=== PATIENT | male | born 1965 | race Caucasian/White ===

== ENCOUNTER 2021-01-25 00:17 | Inpatient (IN) | payer BC ==
[2021-01-25] MEDS ORDERED: SODIUM CHLORIDE 0.9% 2,000 ML IV STA (00:49)
[2021-01-25] MEDS ORDERED: ONDANSETRON 4 MG/2 ML VIAL IVP STA (00:49)
--- NOTE | 2021-01-25 00:55 | ED ---
Abdominal Pain HPI - General Chief Complaint: Abdominal Pain Stated Complaint: Abd Pain Time Seen by Provider: 01/25/21 00:27 Source: patient, RN notes reviewed Mode of arrival: ambulatory Limitations: no limitations - History of Present Illness Initial Comments: 55-year-old male presents emergency Department with chief complaint of severe upper abdominal, mid abdominal pain. Patient states his started around 8:00 this evening. Patient is a cement the pain. Patient does have a history of bowel resection secondary to diverticulitis. Patient states this was many years ago. Patient with nausea vomiting mild constipation. No known fever states he 's had chills, sweating episodes. No chest pain shortness breath headache dizziness. Dies any back or flank pain - Related Data Allergies Allergy/AdvReac Type Severity Reaction Status Date / Time No Known Allergies Allergy Verified 01/25/21 00:21 Review of Systems ROS Statement: Those systems with pertinent positive or pertinent negative responses have been documented in the HPI. ROS Other: All systems not noted in ROS Statement are negative. Past Medical History Past Medical History: Hypertension Additional Past Medical History / Comment(s): diverticulitis History of Any Multi-Drug Resistant Organisms: None Reported Past Surgical History: Bowel Resection Past Psychological History: Depression Smoking Status: Former smoker Past Alcohol Use History: None Reported Past Drug Use History: None Reported General Exam Limitations: no limitations General appearance: alert, in no apparent distress Head exam: Present: atraumatic, normocephalic, normal inspection Eye exam: Present: normal appearance, PERRL, EOMI. Absent: scleral icterus, conjunctival injection, periorbital swelling ENT exam: Present: normal exam, normal oropharynx, mucous membranes moist Neck exam: Present: normal inspection, full ROM. Absent: tenderness, meningismus, lymphadenopathy Respiratory exam: Present: normal lung sounds bilaterally. Absent: respiratory distress, wheezes, rales, rhonchi, stridor Cardiovascular Exam: Present: regular rate, normal rhythm, normal heart sounds. Absent: systolic murmur, diastolic murmur, rubs, gallop, clicks GI/Abdominal exam: Present: soft, tenderness, guarding (Voluntary), normal bowel sounds. Absent: distended, rebound, rigid Back exam: Absent: CVA tenderness (R), CVA tenderness (L) Neurological exam: Present: alert, oriented X3 Skin exam: Present: warm, dry, intact, normal color. Absent: rash Course Vital Signs 01/25/21 00:22 Temperature 98.0 F Pulse Rate 103 H Respiratory 16 Rate Blood Pressure 159/99 O2 Sat by Pulse 97 Oximetry Medical Decision Making - Medical Decision Making 55-year-old presented for abdominal pain CT shows evidence of partial small bowel obstruction. Patient does have a history of bowel resection. Patient would be admitted with consult to surgery. - Lab Data Result diagrams: 01/25/21 00:56 01/25/21 00:56 Lab Results 01/25/21 01/25/21 01/25/21 Range/Units 00:56 00:56 00:56 WBC 16.2 H (3.8-10.6) k/uL RBC 5.89 (4.30-5.90) m/uL Hgb 17.1 (13.0-17.5) gm/dL Hct 50.2 (39.0-53.0) % MCV 85.2 (80.0-100.0) fL MCH 29.1 (25.0-35.0) pg MCHC 34.2 (31.0-37.0) g/dL RDW 12.7 (11.5-15.5) % Plt Count 292 (150-450) k/uL MPV 7.9 Neutrophils % 86 % Lymphocytes % 10 % Monocytes % 3 % Eosinophils % 1 % Basophils % 1 % Neutrophils # 13.8 H (1.3-7.7) k/uL Lymphocytes # 1.6 (1.0-4.8) k/uL Monocytes # 0.4 (0-1.0) k/uL Eosinophils # 0.2 (0-0.7) k/uL Basophils # 0.1 (0-0.2) k/uL PT 10.2 (9.0-12.0) sec INR 0.9 (<1.2) APTT 20.9 L (22.0-30.0) sec Sodium 137 (137-145) mmol/L Potassium 4.8 (3.5-5.1) mmol/L Chloride 98 (98-107) mmol/L Carbon Dioxide 25 (22-30) mmol/L Anion Gap 14 mmol/L BUN 19 (9-20) mg/dL Creatinine 1.12 (0.66-1.25) mg/dL Est GFR (CKD-EPI)AfAm 84 (>60 ml/min/1.73 sqM) Est GFR (CKD-EPI)NonAf 73 (>60 ml/min/1.73 sqM) Glucose 178 H (74-99) mg/dL Plasma Lactic Acid [place] (0.7-2.0) mmol/L Calcium 10.7 H (8.4-10.2) mg/dL Total Bilirubin 0.7 (0.2-1.3) mg/dL AST 40 (17-59) U/L ALT 46 (4-49) U/L Alkaline Phosphatase 109 (38-126) U/L Total Protein 8.9 H (6.3-8.2) g/dL Albumin 5.1 H (3.5-5.0) g/dL Amylase 49 (30-110) U/L Lipase 55 (23-300) U/L 01/25/21 Range/Units 00:56 WBC (3.8-10.6) k/uL RBC (4.30-5.90) m/uL Hgb (13.0-17.5) gm/dL Hct (39.0-53.0) % MCV (80.0-100.0) fL MCH (25.0-35.0) pg MCHC (31.0-37.0) g/dL RDW (11.5-15.5) % Plt Count (150-450) k/uL MPV Neutrophils % % Lymphocytes % % Monocytes % % Eosinophils % % Basophils % % Neutrophils # (1.3-7.7) k/uL Lymphocytes # (1.0-4.8) k/uL Monocytes # (0-1.0) k/uL Eosinophils # (0-0.7) k/uL Basophils # (0-0.2) k/uL PT (9.0-12.0) sec INR (<1.2) APTT (22.0-30.0) sec Sodium (137-145) mmol/L Potassium (3.5-5.1) mmol/L Chloride (98-107) mmol/L Carbon Dioxide (22-30) mmol/L Anion Gap mmol/L BUN (9-20) mg/dL Creatinine (0.66-1.25) mg/dL Est GFR (CKD-EPI)AfAm (>60 ml/min/1.73 sqM) Est GFR (CKD-EPI)NonAf (>60 ml/min/1.73 sqM) Glucose (74-99) mg/dL Plasma Lactic Acid [place] 3.6 H* (0.7-2.0) mmol/L Calcium (8.4-10.2) mg/dL Total Bilirubin (0.2-1.3) mg/dL AST (17-59) U/L ALT (4-49) U/L Alkaline Phosphatase (38-126) U/L Total Protein (6.3-8.2) g/dL Albumin (3.5-5.0) g/dL Amylase (30-110) U/L Lipase (23-300) U/L Disposition Clinical Impression: Partial small bowel obstruction Disposition: ADMITTED IP TO THIS HOSP Condition: Fair Referrals: Nonstaff,Physician [REFERRING] - 1-2 days
[2021-01-25 01:05] LABS: Basophils # (A) 0.1 k/uL (0-0.2); Basophils % (A) 1 %; Eosinophils # (A) 0.2 k/uL (0-0.7); Eosinophils % (A) 1 %; HCT 50.2 % (39.0-53.0); HGB 17.1 gm/dL (13.0-17.5); Lymphocytes # (A) 1.6 k/uL (1.0-4.8); Lymphocytes % (A) 10 %; MCH 29.1 pg (25.0-35.0); MCHC 34.2 g/dL (31.0-37.0); MCV 85.2 fL (80.0-100.0); Mean Platelet Volume 7.9; Monocytes # (A) 0.4 k/uL (0-1.0); Monocytes % (A) 3 %; Neutrophils # (A) 13.8 k/uL (1.3-7.7); Neutrophils % (A) 86 %; Platelet Count 292 k/uL (150-450); RBC 5.89 m/uL (4.30-5.90); RDW 12.7 % (11.5-15.5); WBC 16.2 k/uL (3.8-10.6)
[2021-01-25] MEDS: HYDROmorphone 0.5 MG/0.5 ML SYRINGE IVP STA (01:05)
[2021-01-25 01:27] LABS: INR 0.9 (<1.2); Prothrombin Time 10.2 sec (9.0-12.0)
[2021-01-25 01:32] LABS: Partial Thromboplastin Time 20.9 sec (22.0-30.0)
[2021-01-25 01:46] LABS: Albumin 5.1 g/dL (3.5-5.0); Calcium 10.7 mg/dL (8.4-10.2); Potassium 4.8 mmol/L (3.5-5.1); Total Bilirubin 0.7 mg/dL (0.2-1.3); Total Protein 8.9 g/dL (6.3-8.2)
--- NOTE | 2021-01-25 02:00 | CT ---
EXAM: CT Abdomen and Pelvis With Intravenous Contrast CLINICAL HISTORY: ITS.REASON CT Reason: abdominal pain TECHNIQUE: Axial computed tomography images of the abdomen and pelvis with intravenous contrast. CTDI is 22.67 mGy and DLP is 1066.3 mGy-cm. This CT exam was performed using one or more of the following dose reduction techniques: automated exposure control, adjustment of the mA and/or kV according to patient size, and/or use of iterative reconstruction technique. COMPARISON: No relevant prior studies available. FINDINGS: Lung bases: Unremarkable. No mass. No consolidation. ABDOMEN: Liver: Hepatic steatosis. Gallbladder and bile ducts: Unremarkable. No calcified stones. No ductal dilation. Pancreas: Unremarkable. No mass. No ductal dilation. Spleen: Unremarkable. No splenomegaly. Adrenals: Unremarkable. No mass. Kidneys and ureters: Unremarkable. No solid mass. No hydronephrosis. Stomach and bowel: Asymmetric fluid distention of multiple loops of small bowel in the left abdomen and pelvis, measuring up to 3.6 cm in diameter there is a suggestion of a transition point noted anteriorly in the midline abdomen (series 202; images 10-13). Asymmetric decompression of the mid to distal small bowel loops is noted in the right abdomen and pelvis. Mild stool throughout the colon. Postsurgical changes involving the sigmoid region. No mucosal thickening. PELVIS: Appendix: No findings to suggest acute appendicitis. Bladder: Unremarkable. No mass. Reproductive: Unremarkable as visualized. ABDOMEN and PELVIS: Intraperitoneal space: Unremarkable. No free air. No significant fluid collection. Bones/joints: No acute fracture. No dislocation. Soft tissues: Unremarkable. Vasculature: Unremarkable. No abdominal aortic aneurysm. Lymph nodes: Unremarkable. No enlarged lymph nodes. IMPRESSION: Asymmetric fluid distention of multiple loops of small bowel in the left abdomen and pelvis, measuring up to 3.6 cm in diameter there is a suggestion of a transition point noted anteriorly in the midline abdomen. Asymmetric decompression of the mid to distal small bowel loops is noted in the right abdomen and pelvis. Findings are highly suspicious for at least a partial mid small bowel obstruction. No pneumatosis or pneumoperitoneum.
[2021-01-25] MEDS ORDERED: HYDROmorphone 0.5 MG/0.5 ML SYRINGE IVP PRN (02:37)
[2021-01-25] MEDS ORDERED: NALOXONE 0.4 MG/ML 1 ML VIAL IV PRN (02:37)
[2021-01-25] MEDS: SODIUM CHLORIDE 0.9% 1,000 ML IV SCH ×2 (03:00→15:05)
[2021-01-25 03:18] LABS: Appearance,Urine Clear (Clear); Bilirubin,Urine Negative (Negative); Blood,Urine Negative (Negative); Color,Urine Light Yellow; Glucose,Urine (UA) Negative (Negative); Ketones,Urine 1+ (Negative); Leukocyte Esterase,Urine Negative (Negative); Nitrite,Urine Negative (Negative); PH, Urine 8.5 (5.0-8.0); Protein,Urine Trace (Negative); Urobilinogen,Urine <2.0 mg/dL (<2.0)
[2021-01-25] MEDS: HYDROmorphone 1 MG/ML 1 ML SYRINGE IVP PRN ×5 (04:38→17:10)
[2021-01-25] MEDS: PANTOPRAZOLE 40 MG/10 ML VIAL IV SCH (07:46)
[2021-01-25] MEDS: ONDANSETRON 4 MG/2 ML VIAL IVP PRN ×2 (07:54→16:08)
--- NOTE | 2021-01-25 11:29 | P.GSCN ---
History of Present Illness Consult date: 01/25/21 Reason for Consult: Small obstruction or bowel obstruction History of present illness: Is a 55-year-old male who was minimal possible colitis and nausea vomiting abdominal pain. Patient CAT scan performed which showed evidence of small bowel obstruction with transition point. Patient's previous history of exploratory laparotomy and colon resection for diverticulitis. He has an incisional hernia. Past Medical History Past Medical History: Hypertension Additional Past Medical History / Comment(s): diverticulitis History of Any Multi-Drug Resistant Organisms: None Reported Past Surgical History: Bowel Resection Past Anesthesia/Blood Transfusion Reactions: No Reported Reaction Past Psychological History: Depression Smoking Status: Former smoker Past Alcohol Use History: None Reported Additional Past Alcohol Use History / Comment(s): currently going AA meeting for 3 weeks Past Drug Use History: None Reported Medications and Allergies Home Medications Medication Instructions Recorded Confirmed Type Aspirin EC [Ecotrin] 325 mg PO DAILY PRN 01/25/21 01/25/21 History Doxylamine Succinate [Unisom] 25 mg PO HS PRN 01/25/21 01/25/21 History Lisinopril [Prinivil] 10 mg PO DAILY 01/25/21 01/25/21 History Magnesium Hydroxide [Milk of 400 mg PO DAILY PRN 01/25/21 01/25/21 History Magnesia] Melatonin 3 mg PO HS PRN 01/25/21 01/25/21 History Multivitamins, Thera [Multivitamin 1 tab PO DAILY 01/25/21 01/25/21 History (formulary)] Omeprazole 20 mg PO DAILY 01/25/21 01/25/21 History Venlafaxine HCl [Effexor XR] 75 mg PO BID 01/25/21 01/25/21 History amLODIPine [Norvasc] 2.5 mg PO DAILY 01/25/21 01/25/21 History Allergies Allergy/AdvReac Type Severity Reaction Status Date / Time No Known Allergies Allergy Verified 01/25/21 09:08 Surgical - Exam Vital Signs Temp Pulse Resp BP Pulse Ox 98.0 F 103 H 16 159/99 97 01/25/21 00:22 01/25/21 00:22 01/25/21 00:22 01/25/21 00:22 01/25/21 00:22 - General well developed, well nourished, moderate distress - Eyes PERRL - ENT normal pinna - Neck no masses - Respiratory normal expansion - Cardiovascular Rhythm: regular - Abdomen Incisional hernia located midline Abdomen: soft, tender, distended Results - Labs 01/25/21 00:56 01/25/21 00:56 Abnormal Lab Results - Last 24 Hours (Table) 01/25/21 01/25/21 01/25/21 Range/Units 00:56 00:56 00:56 WBC 16.2 H (3.8-10.6) k/uL Neutrophils # 13.8 H (1.3-7.7) k/uL APTT 20.9 L (22.0-30.0) sec Glucose 178 H (74-99) mg/dL Plasma Lactic Acid [place] (0.7-2.0) mmol/L Calcium 10.7 H (8.4-10.2) mg/dL Total Protein 8.9 H (6.3-8.2) g/dL Albumin 5.1 H (3.5-5.0) g/dL Urine pH (5.0-8.0) Ur Specific [place] (1.001-1.035) Urine Protein (Negative) Urine Ketones (Negative) 01/25/21 01/25/21 01/25/21 Range/Units 00:56 03:04 04:15 WBC (3.8-10.6) k/uL Neutrophils # (1.3-7.7) k/uL APTT (22.0-30.0) sec Glucose (74-99) mg/dL Plasma Lactic Acid [place] 3.6 H* 2.2 H* (0.7-2.0) mmol/L Calcium (8.4-10.2) mg/dL Total Protein (6.3-8.2) g/dL Albumin (3.5-5.0) g/dL Urine pH 8.5 H (5.0-8.0) Ur Specific [place] 1.040 H (1.001-1.035) Urine Protein Trace H (Negative) Urine Ketones 1+ H (Negative) Diabetes panel 01/25/21 Range/Units 00:56 Sodium 137 (137-145) mmol/L Potassium 4.8 (3.5-5.1) mmol/L Chloride 98 (98-107) mmol/L Carbon Dioxide 25 (22-30) mmol/L BUN 19 (9-20) mg/dL Creatinine 1.12 (0.66-1.25) mg/dL Glucose 178 H (74-99) mg/dL Calcium 10.7 H (8.4-10.2) mg/dL AST 40 (17-59) U/L ALT 46 (4-49) U/L Alkaline Phosphatase 109 (38-126) U/L Total Protein 8.9 H (6.3-8.2) g/dL Albumin 5.1 H (3.5-5.0) g/dL Calcium panel 01/25/21 Range/Units 00:56 Calcium 10.7 H (8.4-10.2) mg/dL Albumin 5.1 H (3.5-5.0) g/dL Pituitary panel 01/25/21 Range/Units 00:56 Sodium 137 (137-145) mmol/L Potassium 4.8 (3.5-5.1) mmol/L Chloride 98 (98-107) mmol/L Carbon Dioxide 25 (22-30) mmol/L BUN 19 (9-20) mg/dL Creatinine 1.12 (0.66-1.25) mg/dL Glucose 178 H (74-99) mg/dL Calcium 10.7 H (8.4-10.2) mg/dL Adrenal panel 01/25/21 Range/Units 00:56 Sodium 137 (137-145) mmol/L Potassium 4.8 (3.5-5.1) mmol/L Chloride 98 (98-107) mmol/L Carbon Dioxide 25 (22-30) mmol/L BUN 19 (9-20) mg/dL Creatinine 1.12 (0.66-1.25) mg/dL Glucose 178 H (74-99) mg/dL Calcium 10.7 H (8.4-10.2) mg/dL Total Bilirubin 0.7 (0.2-1.3) mg/dL AST 40 (17-59) U/L ALT 46 (4-49) U/L Alkaline Phosphatase 109 (38-126) U/L Total Protein 8.9 H (6.3-8.2) g/dL Albumin 5.1 H (3.5-5.0) g/dL Assessment and Plan Assessment: Small obstruction related to incisional hernia and adhesions. Patient undergo operative repair in the a.m.
[2021-01-25] MEDS ORDERED: ONDANSETRON 4 MG/2 ML VIAL IVP PRN (16:44)
--- NOTE | 2021-01-25 17:43 | P.CONS ---
History of Present Illness - Reason for Consult Consult date: 01/25/21 Medical management - Chief Complaint Abdominal pain - History of Present Illness 55-year-old male presents emergency Department with chief complaint of severe upper abdominal, mid abdominal pain. Patient states his started around 8:00 this evening. Patient is a cement the pain. Patient does have a history of bowel resection secondary to diverticulitis. Patient states this was many years ago. Patient with nausea vomiting mild constipation. No known fever states he's had chills, sweating episodes. No chest pain shortness breath headache dizziness. Dies any back or flank pain abdominal pain CT shows evidence of partial small bowel obstruction. Patient does have a history of bowel resection. Patient would be admitted with consult to surgery. Patient is evaluated by surgery and is planned to undergo incisional hernia repair in the morning with adhesiolysis Review of Systems REVIEW OF SYSTEMS: CONSTITUTIONAL: No fever, no malaise, no fatigue. HEENT: No recent visual problems or hearing problems. Denied any sore throat. CARDIOVASCULAR: No chest pain, orthopnea, PND, no palpitations, no syncope. PULMONARY: No shortness of breath, no cough, no hemoptysis. GASTROINTESTINAL: No diarrhea, no nausea, no vomiting, no abdominal pain. NEUROLOGICAL: No headaches, no weakness, no numbness. HEMATOLOGICAL: Denies any bleeding or petechiae. GENITOURINARY: Denies any burning micturition, frequency, or urgency. MUSCULOSKELETAL/RHEUMATOLOGICAL: Denies any joint pain, swelling, or any muscle pain. ENDOCRINE: Denies any polyuria or polydipsia. The rest of the 14-point review of systems is negative. Past Medical History Past Medical History: Hypertension Additional Past Medical History / Comment(s): diverticulitis History of Any Multi-Drug Resistant Organisms: None Reported Past Surgical History: Bowel Resection Past Anesthesia/Blood Transfusion Reactions: No Reported Reaction Past Psychological History: Depression Smoking Status: Former smoker Past Alcohol Use History: None Reported Additional Past Alcohol Use History / Comment(s): currently going AA meeting for 3 weeks Past Drug Use History: None Reported Medications and Allergies Home Medications Medication Instructions Recorded Confirmed Type Aspirin EC [Ecotrin] 325 mg PO DAILY PRN 01/25/21 01/25/21 History Doxylamine Succinate [Unisom] 25 mg PO HS PRN 01/25/21 01/25/21 History Lisinopril [Prinivil] 10 mg PO DAILY 01/25/21 01/25/21 History Magnesium Hydroxide [Milk of 400 mg PO DAILY PRN 01/25/21 01/25/21 History Magnesia] Melatonin 3 mg PO HS PRN 01/25/21 01/25/21 History Multivitamins, Thera [Multivitamin 1 tab PO DAILY 01/25/21 01/25/21 History (formulary)] Omeprazole 20 mg PO DAILY 01/25/21 01/25/21 History Venlafaxine HCl [Effexor XR] 75 mg PO BID 01/25/21 01/25/21 History amLODIPine [Norvasc] 2.5 mg PO DAILY 01/25/21 01/25/21 History Allergies Allergy/AdvReac Type Severity Reaction Status Date / Time No Known Allergies Allergy Verified 01/25/21 09:08 Physical Exam Vitals: Vital Signs Temp Pulse Pulse Resp BP BP Pulse Ox 01/25/21 08:31 97.8 F 86 17 147/92 90 L 01/25/21 05:14 97.9 F 92 15 155/88 98 01/25/21 04:43 91 18 163/103 98 01/25/21 02:50 97.8 F 92 18 180/108 98 01/25/21 00:22 98.0 F 103 H 16 159/99 97 Intake and Output 01/24/21 01/25/21 01/25/21 22:59 06:59 14:59 Intake Total 75 Balance 75 Intake: Intake, IV Titration 75 Amount Sodium Chloride 0.9% 1, 75 000 ml @ 75 mls/hr IV . [id number] [facility] Rx#:[id number] Other: Weight 86.319 kg - Constitutional General appearance: Present: average body habitus, cooperative, no acute distress - EENT Eyes: Present: anicteric sclerae, EOMI, PERRLA, normal appearance ENT: Present: hearing grossly normal, normal oropharynx Ears: bilateral: normal - Neck Neck: Present: normal ROM. Absent: lymphadenopathy, rigidity, thyromegaly Carotids: negative: bruit present Thyroid: bilateral: normal size, negative: enlarged, nodule - Respiratory Respiratory: bilateral: CTA, negative: rales, rhonchi, wheezing - Cardiovascular Rhythm: regular Heart sounds: normal: S1, S2 Abnormal Heart Sounds: Absent: systolic murmur, diastolic murmur - Gastrointestinal General gastrointestinal: Present: normal bowel sounds, soft. Absent: distended, organomegaly, tenderness - Genitourinary Genitourinary Comment(s): deferred - Integumentary Integumentary: Present: normal turgor. Absent: jaundiced, rash, ulcer - Neurologic Neurologic: Present: CNII-XII intact. Absent: focal deficits - Musculoskeletal Musculoskeletal: Present: gait normal, strength equal bilaterally - Psychiatric Psychiatric: Present: A&O x's 3, appropriate affect, intact judgment & insight Results CBC & Chem 7: 01/25/21 00:56 01/25/21 00:56 Labs: Abnormal Lab Results - Last 24 Hours (Table) 01/25/21 01/25/21 01/25/21 Range/Units 00:56 00:56 00:56 WBC 16.2 H (3.8-10.6) k/uL Neutrophils # 13.8 H (1.3-7.7) k/uL APTT 20.9 L (22.0-30.0) sec Glucose 178 H (74-99) mg/dL Plasma Lactic Acid [place] (0.7-2.0) mmol/L Calcium 10.7 H (8.4-10.2) mg/dL Total Protein 8.9 H (6.3-8.2) g/dL Albumin 5.1 H (3.5-5.0) g/dL Urine pH (5.0-8.0) Ur Specific [place] (1.001-1.035) Urine Protein (Negative) Urine Ketones (Negative) 01/25/21 01/25/21 01/25/21 Range/Units 00:56 03:04 04:15 WBC (3.8-10.6) k/uL Neutrophils # (1.3-7.7) k/uL APTT (22.0-30.0) sec Glucose (74-99) mg/dL Plasma Lactic Acid [place] 3.6 H* 2.2 H* (0.7-2.0) mmol/L Calcium (8.4-10.2) mg/dL Total Protein (6.3-8.2) g/dL Albumin (3.5-5.0) g/dL Urine pH 8.5 H (5.0-8.0) Ur Specific [place] 1.040 H (1.001-1.035) Urine Protein Trace H (Negative) Urine Ketones 1+ H (Negative) Assessment and Plan Assessment: 1. Small bowel obstruction related to incisional hernia and adhesions - Your management; patient is scheduled for or for incisional hernia repair and adhesiolysis in am 2. Leukocytosis; possibly the active; monitor CBC 3. Hypercalcemia; possibly secondary to dehydration; we will start slow IV fluid hydration and monitor electrolytes closely 4. Hypertension; we will resume home dose of lisinopril 10 mg daily and amlodipine 2.5 mg daily 5. Depression/anxiety; Effexor 75 mg daily DVT prophylaxis; SCDs CODE STATUS; full code
[2021-01-25] MEDS: VENLAFAXINE HCL ER 75 MG CAP PO SCH (21:02)
[2021-01-26] MEDS: SODIUM CHLORIDE 0.9% 1,000 ML IV SCH ×2 (06:11→15:20)
[2021-01-26] MEDS: PANTOPRAZOLE 40 MG/10 ML VIAL IV SCH (07:38)
[2021-01-26] MEDS: VENLAFAXINE HCL ER 75 MG CAP PO SCH ×2 (08:14→20:54)
[2021-01-26] MEDS ORDERED: IV FLUID CONTINUATION 800 ML IV ONE (10:39)
[2021-01-26] MEDS ORDERED: MIDAZOLAM 2 MG/2 ML VIAL IV ONE (10:44)
[2021-01-26] MEDS ORDERED: fentaNYL (PF) 50 MCG/ML 2 ML AMP IV ONE (10:44)
[2021-01-26] MEDS ORDERED: HEPARIN SODIUM,PORCINE 5,000 UNIT/ML 1 ML VIAL SQ ONE (11:00)
[2021-01-26] MEDS ORDERED: DEXAMETHASONE SOD PHOSPHATE 4 MG/ML 1 ML VIAL IV ONE (11:00)
[2021-01-26] MEDS ORDERED: ROCURONIUM 10 MG/ML (5 ML VIAL) IV ONE (11:01)
[2021-01-26] MEDS ORDERED: NEOSTIGMINE 1 MG/ML 10 ML VIAL ONE (11:01)
[2021-01-26] MEDS ORDERED: fentaNYL (PF) 50 MCG/ML 2 ML AMP ONE (11:01)
[2021-01-26] MEDS ORDERED: SUCCINYLCHOLINE CHLORIDE 100 MG/5 ML SYR IV ONE (11:01)
[2021-01-26] MEDS ORDERED: MIDAZOLAM 2 MG/2 ML VIAL ONE (11:01)
[2021-01-26] MEDS ORDERED: LIDOCAINE 1% INJ 10MG/ML (20 ML MDV) ONE (11:01)
[2021-01-26] MEDS ORDERED: GLYCOPYRROLATE 0.2 MG/ML 2 ML VIAL ONE (11:01)
[2021-01-26] MEDS ORDERED: ROPIVACAINE 5 MG/ML 30 ML VIAL ONE (11:01)
[2021-01-26] MEDS ORDERED: PROPOFOL 10 MG/ML 20 ML VIAL IV ONE (11:01)
[2021-01-26] MEDS ORDERED: KETOROLAC 15 MG/ML 1 ML VIAL ONE (11:01)
--- NOTE | 2021-01-26 11:05 | P.ANPRN ---
Procedure Note - Anesthesia - Nerve Block Performed Bilateral Rectus Abdominis Single Time Out Performed: Yes (1043) Date of Procedure: 01/26/21 Procedure Start Time: 10:44 Procedure Stop Time: 10:51 Location of Patient: Phase I Indication: Acute Post-Operative Pain, Requested by Surgeon Specifically requested for management of pain by DrHoraico: Wayne Winslow Sedation Type: Sedate with meaningful contact maintained Preparation: Sterile Prep Position: Supine Catheter: None Needle Types: [place] Needle Gauge: 21 Ultrasound used to visualize needle placement: Yes Ultrasound used to observe medication spread: Yes Injectate: 0.5% Ropivacaine (see comment for volume) (20cc each side) Blood Aspirated: No Pain Paresthesia on Injection Noted: No Resistance on Injection: Normal Image Stored and Saved: Yes Events: Uneventful and Well Tolerated
[2021-01-26] MEDS ORDERED: SODIUM CHLORIDE 0.9% 100 ML with ceFAZolin 2,000 MG IV ONE ×2 (11:23)
[2021-01-26] MEDS ORDERED: LACTATED RINGERS 1,000 ML IV ONE ×2 (11:31→12:56)
[2021-01-26 11:45] LABS: Basophils # (A) 0.05 X 10*3/uL (0.00-0.10); Basophils % (A) 0.4 %; Eosinophils # (A) 0.41 X 10*3/uL (0.04-0.35); Eosinophils % (A) 3.4 %; HCT 40.2 % (39.6-50.0); HGB 12.9 g/dL (13.0-17.0); Lymphocytes # (A) 3.83 X 10*3/uL (0.90-5.00); Lymphocytes % (A) 31.3 %; MCHC 32.1 g/dL (32.0-37.0); MCV 90.3 fL (80.0-97.0); Monocytes # (A) 1.02 X 10*3/uL (0.20-1.00); Monocytes % (A) 8.3 %; Neutrophils # (A) 6.88 X 10*3/uL (1.80-7.70); Neutrophils % (A) 56.3 %; Platelet Count 248 X 10*3/uL (140-440); RBC 4.45 X 10*6/uL (4.40-5.60); RDW 12.5 % (11.5-14.5); WBC 12.23 X 10*3/uL (4.50-10.00)
[2021-01-26 12:13] LABS: African American GFR (CKD) 85.9 (60.0-200.0); Albumin 3.9 g/dL (3.80-4.90); Albumin/Globulin Ratio 1.7 (1.60-3.17); Anion Gap 6.9 mmol/L (4.00-12.00); BUN/Creat Ratio 17.27 Ratio (12.00-20.00); Calcium 8.5 mg/dL (8.7-10.3); Carbon Dioxide 27.1 mmol/L (21.6-31.8); Globulin 2.3 g/dL (1.6-3.3); Non-African American GFR(CKD) 74.1 (60.0-200.0); Potassium 4.5 mmol/L (3.5-5.5); Total Bilirubin 0.5 mg/dL (0.2-1.2); Total Protein 6.2 g/dL (6.2-8.2)
[2021-01-26] MEDS ORDERED: NALOXONE 0.4 MG/ML 1 ML VIAL IV PRN (12:56)
[2021-01-26] MEDS ORDERED: HYDROcodone/APAP 5-325MG 1 EACH TAB PO PRN (12:56)
[2021-01-26] MEDS ORDERED: HYDROmorphone 1 MG/ML 1 ML SYRINGE IVP PRN (13:01)
--- NOTE | 2021-01-26 13:05 | P.OP ---
Date of Procedure: 01/26/21 Preoperative Diagnosis: Small bowel obstruction Incisional hernia Postoperative Diagnosis: Adhesions extensive Incisional hernia Small bowel obstruction Procedure(s) Performed: exploratory laparotomy Lysis of adhesions Small bowel resection Repair of incisional hernia Anesthesia: GENO Surgeon: Wayne Winslow Estimated Blood Loss (ml): 100 Pathology: other (Small bowel) Condition: stable Disposition: PACU Description of Procedure: The patient's placed on the operative table in the supine position. He received general anesthesia. His abdomen was prepped and draped usual sterile fashion. The patient appears midline scar. The skin was incised. There were extensive adhesions within the peritoneal cavity. There was an incisional hernia noted. Approximate 40 minutes of operative time used to lyse the extensive adhesions. There appeared to be evidence of a internal hernia. The adhesions were lysed. There was a matted piece of bowel. His perform a small bowel resection. The small bowel was transected proximally distally with a GI stapler. And using the Enseal device the mesentery the bowel was divided. Using a [place] and TA staplers the [id number] functional end-to-end staple anastomosis created. Using 3-0 GI silk suture the mesentery was reapproximated. And a 3-0 GI silk was used as a crotch stitch. The abdomen was irrigated there is no bleeding seen. At this point the fascia was closed. Fascia closed with 0 PDS suture. The incisional hernias repaired during fascia closed. Skin was closed [place]. Patient top she will was sent to recovery in stable condition.
[2021-01-26] MEDS: HYDROmorphone 0.5 MG/0.5 ML SYRINGE IVP STA (13:20)
--- NOTE | 2021-01-26 17:04 | P.PN ---
Subjective Progress Note Date: 01/26/21 Principal diagnosis: Small bowel obstruction related to incisional hernia and adhesions Leukocytosis Hypercalcemia/dehydration 55-year-old male presents emergency Department with chief complaint of severe upper abdominal, mid abdominal pain. Patient states his started around 8:00 this evening. Patient is a cement the pain. Patient does have a history of bowel resection secondary to diverticulitis. Patient states this was many years ago. Patient with nausea vomiting mild constipation. No known fever states he's had chills, sweating episodes. No chest pain shortness breath headache dizziness. Dies any back or flank pain abdominal pain CT shows evidence of partial small bowel obstruction. Patient does have a history of bowel resection. Patient would be admitted with consult to surgery. Patient is evaluated by surgery and is planned to undergo incisional hernia repair in the morning with adhesiolysis 01/26/2021 Patient is seen and evaluated post exploratory laparotomy; Lysis of adhesions; Small bowel resection; Repair of incisional hernia-- POD #0 Vital signs are reviewed and patient remains afebrile, blood pressure 151/85, pulse 90 and O2 saturation of 94% on 2 L Labs reveal an improved white blood count of 12.2 from 16.2 yesterday; chemical profile remains stable; blood glucoses ranging between 94-178 Objective - Vital Signs Vital signs: Vital Signs Temp 98.2 F 01/26/21 07:33 Pulse 93 01/26/21 10:40 Resp 16 01/26/21 10:40 BP 136/77 01/26/21 10:40 Pulse Ox 96 01/26/21 10:40 Intake & Output 01/25/21 01/26/21 01/26/21 18:59 06:59 18:59 Intake Total 900 700 Balance 900 700 Weight 86.319 kg Intake: IV 700 Intake, IV Titration 900 Amount Sodium Chloride 0.9% 1, 900 000 ml @ 75 mls/hr IV . [id number] [facility] Rx#:[id number] Other: # Voids 3 1 - Exam - Constitutional General appearance: Present: average body habitus, cooperative, no acute distress - EENT Eyes: Present: anicteric sclerae, EOMI, PERRLA, normal appearance ENT: Present: hearing grossly normal, normal oropharynx Ears: bilateral: normal - Neck Neck: Present: normal ROM. Absent: lymphadenopathy, rigidity, thyromegaly Carotids: negative: bruit present Thyroid: bilateral: normal size, negative: enlarged, nodule - Respiratory Respiratory: bilateral: CTA, negative: rales, rhonchi, wheezing - Cardiovascular Rhythm: regular Heart sounds: normal: S1, S2 Abnormal Heart Sounds: Absent: systolic murmur, diastolic murmur - Gastrointestinal General gastrointestinal: Present: normal bowel sounds, soft. Absent: distended, organomegaly, tenderness - Genitourinary Genitourinary Comment(s): deferred - Integumentary Integumentary: Present: normal turgor. Absent: jaundiced, rash, ulcer - Neurologic Neurologic: Present: CNII-XII intact. Absent: focal deficits - Musculoskeletal Musculoskeletal: Present: gait normal, strength equal bilaterally - Psychiatric Psychiatric: Present: A&O x's 3, appropriate affect, intact judgment & insight - Labs CBC & Chem 7: 01/26/21 06:49 01/26/21 06:49 Labs: Abnormal Lab Results - Last 24 Hours (Table) 01/26/21 01/26/21 Range/Units 06:49 06:49 WBC 12.23 H (4.50-10.00) X 10*3/uL Hgb 12.9 L (13.0-17.0) g/dL Monocytes # 1.02 H (0.20-1.00) X 10*3/uL Eosinophils # 0.41 H (0.04-0.35) X 10*3/uL Calcium 8.5 L (8.7-10.3) mg/dL Assessment and Plan Assessment: 1. Small bowel obstruction related to incisional hernia and adhesions - Your management; patient is scheduled for or for incisional hernia repair and adhesiolysis in am 2. Leukocytosis; possibly the active; monitor CBC 3. Hypercalcemia; possibly secondary to dehydration; we will start slow IV fluid hydration and monitor electrolytes closely 4. Hypertension; we will resume home dose of lisinopril 10 mg daily and am lodipine 2.5 mg daily 5. Depression/anxiety; Effexor 75 mg daily DVT prophylaxis; SCDs CODE STATUS; full code
[2021-01-26] MEDS: KETOROLAC 15 MG/ML 1 ML VIAL IVP SCH (18:09)
[2021-01-26] MEDS: DOCUSATE 100 MG CAP PO SCH (20:54)
[2021-01-27] MEDS: KETOROLAC 15 MG/ML 1 ML VIAL IVP SCH ×4 (00:10→17:05)
[2021-01-27] MEDS: ENOXAPARIN 40 MG/0.4 ML SYRINGE SQ SCH (07:35)
[2021-01-27] MEDS: PANTOPRAZOLE 40 MG/10 ML VIAL IV SCH (07:35)
[2021-01-27] MEDS: VENLAFAXINE HCL ER 75 MG CAP PO SCH ×2 (07:36→20:12)
[2021-01-27] MEDS: DOCUSATE 100 MG CAP PO SCH ×2 (07:36→20:12)
[2021-01-27] MEDS: SODIUM CHLORIDE 0.9% 1,000 ML IV SCH (07:37)
[2021-01-27 08:48] LABS: Basophils # (A) 0.1 k/uL (0-0.2); Basophils % (A) 0 %; Eosinophils % (A) 0 %; HCT 42.3 % (39.0-53.0); HGB 14.2 gm/dL (13.0-17.5); Lymphocytes # (A) 2.3 k/uL (1.0-4.8); Lymphocytes % (A) 17 %; MCH 29.6 pg (25.0-35.0); MCHC 33.6 g/dL (31.0-37.0); MCV 88.2 fL (80.0-100.0); Mean Platelet Volume 7.7; Monocytes % (A) 8 %; Neutrophils # (A) 9.6 k/uL (1.3-7.7); Neutrophils % (A) 73 %; Platelet Count 223 k/uL (150-450); RDW 12.4 % (11.5-15.5); WBC 13.2 k/uL (3.8-10.6)
[2021-01-27 08:54] LABS: African American GFR (CKD) >90 (>60 ml/min/1.73 sqM); Anion Gap 11 mmol/L; Blood Urea Nitrogen 18 mg/dL (9-20); Calcium 8.7 mg/dL (8.4-10.2); Carbon Dioxide 25 mmol/L (22-30); Chloride 100 mmol/L (98-107); Glucose 123 mg/dL (74-99); Non-African American GFR(CKD) 81 (>60 ml/min/1.73 sqM); Sodium 136 mmol/L (137-145)
[2021-01-27] MEDS: HYDROmorphone 1 MG/ML 1 ML SYRINGE IVP PRN ×2 (11:06→21:55)
--- NOTE | 2021-01-27 13:17 | P.PN ---
Subjective Progress Note Date: 01/27/21 CHIEF COMPLAINT: Abdominal pain HISTORY OF PRESENT ILLNESS: Patient is postop day #1 status post exploratory laparotomy, lysis of adhesions, small bowel resection and repair of incisional hernia for small bowel obstruction with extensive adhesions and an incisional hernia. Patient does report crampy abdominal pain. No bowel activity yet. He is nothing by mouth. Afebrile. WBC 13.2 PHYSICAL EXAM: VITAL SIGNS: Reviewed. GENERAL: Well-developed in no acute distress. HEENT: No sclera icterus. Extraocular movements grossly intact. Moist buccal mucosa. Head is atraumatic, normocephalic. ABDOMEN: Soft. Nondistended. Incision sites clean dry and intact NEUROLOGIC: Alert and oriented. Cranial nerves II through XII grossly intact. ASSESSMENT: 1. Small bowel obstruction with extensive adhesions and an incisional hernia status post exploratory laparotomy, lysis of adhesions, small bowel resection and repair of incisional hernia PLAN: -Keep patient nothing by mouth -Continue pain medication as needed -Discontinue Russ catheter -Order incentive spirometer -Encourage patient to ambulate -GI prophylaxis Protonix and DVT prophylaxis Lovenox Physician Engineering Administrator note has been reviewed by physician. Signing provider agrees with the documented findings, assessment, and plan of care. Objective - Vital Signs Vital signs: Vital Signs Temp 98.0 F 01/27/21 08:00 Pulse 90 01/27/21 08:00 Resp 19 01/27/21 08:00 BP 170/71 01/27/21 08:00 Pulse Ox 93 L 01/27/21 08:00 Intake & Output 01/26/21 01/27/21 01/27/21 18:59 06:59 18:59 Intake Total 2700 750 Output Total 2375 1575 400 Balance 325 -825 -400 Weight 86.319 kg Intake: IV 1700 Intake, IV Titration 1000 750 Amount Lactated Ringers 1,000 ml 1000 @ 125 mls/hr IV .Q8H ONE Rx#:[id number] Sodium Chloride 0.9% 1, 750 000 ml @ 75 mls/hr IV . [id number] [facility] Rx#:[id number] Output: Urine 2275 1575 400 Uretheral (Russ) 400 Estimated Blood Loss 100 Other: Voiding Method Indwelling Catheter - Labs CBC & Chem 7: 01/27/21 08:19 03/08/21 08:19 Labs: Abnormal Lab Results - Last 24 Hours (Table) 01/27/21 01/27/21 Range/Units 08:19 08:19 WBC 13.2 H (3.8-10.6) k/uL Neutrophils # 9.6 H (1.3-7.7) k/uL Sodium 136 L (137-145) mmol/L Glucose 123 H (74-99) mg/dL
--- NOTE | 2021-01-27 16:32 | P.PN ---
Subjective 55-year-old male presents emergency Department with chief complaint of severe upper abdominal, mid abdominal pain. Patient states his started around 8:00 this evening. Patient is a cement the pain. Patient does have a history of bowel resection secondary to diverticulitis. Patient states this was many years ago. Patient with nausea vomiting mild constipation. No known fever states he's had chills, sweating episodes. No chest pain shortness breath headache dizziness. Dies any back or flank pain abdominal pain CT shows evidence of partial small bowel obstruction. Patient does have a history of bowel resection. Patient would be admitted with consult to surgery. Patient is evaluated by surgery and is planned to undergo incisional hernia repair in the morning with adhesiolysis 01/26/2021 Patient is seen and evaluated post exploratory laparotomy; Lysis of adhesions; Small bowel resection; Repair of incisional hernia-- POD #0 Vital signs are reviewed and patient remains afebrile, blood pressure 151/85, pu lse 90 and O2 saturation of 94% on 2 L Labs reveal an improved white blood count of 12.2 from 16.2 yesterday; chemical profile remains stable; blood glucoses ranging between 94-178 01/27/2021 Patient is passing gas does have bowel sounds. Discussed with the just surgery patient will be started on clear liquid diet. Constitutional: Denied any fatigue denied any fever. Cardio vascular: denied any chest pain, palpitations Gastrointestinal denied any nausea vomiting Pulmonary: Denied any shortness of breath cough Neurologic denied any new focal deficits All inpatient medications were reviewed and appropriate changes in these medications as dictated in the interval history and assessment and plan. Objective - Vital Signs Vital signs: Vital Signs Temp 98.0 F 01/27/21 14:00 Pulse 76 01/27/21 14:00 Resp 18 01/27/21 14:00 BP 147/89 01/27/21 14:00 Pulse Ox 97 01/27/21 14:00 Intake & Output 01/26/21 01/27/21 01/27/21 18:59 06:59 18:59 Intake Total 2700 750 Output Total 2375 1575 400 Balance 325 -825 -400 Weight 86.319 kg Intake: IV 1700 Intake, IV Titration 1000 750 Amount Lactated Ringers 1,000 ml 1000 @ 125 mls/hr IV .Q8H ONE Rx#:[id number] Sodium Chloride 0.9% 1, 750 000 ml @ 75 mls/hr IV . [id number] [facility] Rx#:[id number] Output: Urine 2275 1575 400 Uretheral (Russ) 400 Estimated Blood Loss 100 Other: Voiding Method Indwelling Catheter - Exam PHYSICAL EXAMINATION: GENERAL: The patient is alert and oriented x3, not in any acute distress. Well developed, well nourished. HEENT: Pupils are round and equally reacting to light. EOMI. No scleral icterus. No conjunctival pallor. Normocephalic, atraumatic. No pharyngeal erythema. No thyromegaly. CARDIOVASCULAR: S1 and S2 present. No murmurs, rubs, or gallops. PULMONARY: Chest is clear to auscultation, no wheezing or crackles. ABDOMEN: Soft, nontender, nondistended, normoactive bowel sounds. No palpable organomegaly. Abdominal binder in place MUSCULOSKELETAL: No joint swelling or deformity. EXTREMITIES: No cyanosis, clubbing, or pedal edema. NEUROLOGICAL: Gross neurological examination did not reveal any focal deficits. SKIN: No rashes. - Labs CBC & Chem 7: 01/27/21 08:19 01/27/21 08:19 Labs: Abnormal Lab Results - Last 24 Hours (Table) 01/27/21 01/27/21 Range/Units 08:19 08:19 WBC 13.2 H (3.8-10.6) k/uL Neutrophils # 9.6 H (1.3-7.7) k/uL Sodium 136 L (137-145) mmol/L Glucose 123 H (74-99) mg/dL Assessment and Plan Plan: Assessment and Plan Assessment: 1. Small bowel obstruction related to incisional hernia and adhesions patient is passing gas diet will be advanced 2. Leukocytosis; reactive without any evidence of infection 3. Hypercalcemia; possibly secondary to dehydration; approved with IV fluids 4. Hypertension; we will resume home dose of lisinopril 10 mg daily can you to hold amlodipine 5. Depression/anxiety; Effexor 75 mg daily
[2021-01-28] MEDS: KETOROLAC 15 MG/ML 1 ML VIAL IVP SCH ×3 (00:31→12:35)
[2021-01-28] MEDS: SODIUM CHLORIDE 0.9% 1,000 ML IV SCH ×2 (00:32→12:27)
[2021-01-28] MEDS: DOCUSATE 100 MG CAP PO SCH ×2 (08:09→19:18)
[2021-01-28] MEDS: PANTOPRAZOLE 40 MG/10 ML VIAL IV SCH (08:09)
[2021-01-28] MEDS: ENOXAPARIN 40 MG/0.4 ML SYRINGE SQ SCH (08:09)
[2021-01-28] MEDS: lisinopriL 10 MG TAB PO SCH (08:09)
[2021-01-28] MEDS: VENLAFAXINE HCL ER 75 MG CAP PO SCH ×2 (08:09→19:18)
[2021-01-28 08:34] LABS: Basophils # (A) 0.05 X 10*3/uL (0.00-0.10); Basophils % (A) 0.5 %; Eosinophils # (A) 0.53 X 10*3/uL (0.04-0.35); Eosinophils % (A) 5.2 %; HCT 37.5 % (39.6-50.0); HGB 12.9 g/dL (13.0-17.0); Lymphocytes # (A) 2.19 X 10*3/uL (0.90-5.00); Lymphocytes % (A) 21.5 %; MCH 29.9 pg (27.0-32.0); MCHC 34.4 g/dL (32.0-37.0); Monocytes # (A) 1.03 X 10*3/uL (0.20-1.00); Monocytes % (A) 10.1 %; Neutrophils # (A) 6.31 X 10*3/uL (1.80-7.70); Platelet Count 227 X 10*3/uL (140-440); RBC 4.31 X 10*6/uL (4.40-5.60); WBC 10.18 X 10*3/uL (4.50-10.00)
[2021-01-28 09:39] LABS: African American GFR (CKD) 96.4 (60.0-200.0); Anion Gap 9.1 mmol/L (4.00-12.00); Calcium 8.5 mg/dL (8.7-10.3); Carbon Dioxide 26.9 mmol/L (21.6-31.8); Non-African American GFR(CKD) 83.2 (60.0-200.0)
--- NOTE | 2021-01-28 11:13 | P.PN ---
Subjective Progress Note Date: 01/28/21 55-year-old male presents emergency Department with chief complaint of severe upper abdominal, mid abdominal pain. Patient states his started around 8:00 this evening. Patient is a cement the pain. Patient does have a history of bowel resection secondary to diverticulitis. Patient states this was many years ago. Patient with nausea vomiting mild constipation. No known fever states he's had chills, sweating episodes. No chest pain shortness breath headache dizziness. Dies any back or flank pain abdominal pain CT shows evidence of partial small bowel obstruction. Patient does have a history of bowel resection. Patient would be admitted with consult to surgery. Patient is evaluated by surgery and is planned to undergo incisional hernia repair in the morning with adhesiolysis 01/26/2021 Patient is seen and evaluated post exploratory laparotomy; Lysis of adhesions; Small bowel resection; Repair of incisional hernia-- POD #0 Vital signs are reviewed and patient remains afebrile, blood pressure 151/85, pulse 90 and O2 saturation of 94% on 2 L Labs reveal an improved white blood count of 12.2 from 16.2 yesterday; chemical profile remains stable; blood glucoses ranging between 94-178 01/27/2021 Patient is passing gas does have bowel sounds. Discussed with the just surgery patient will be started on clear liquid diet. 01/28/2021 Patient seen day 2 postop, passing gas no bowel movement yet. Remains on clear liquid diet, no nausea vomiting. Bowel sounds. Hemodynamically stable afebrile. Constitutional: Denied any fatigue denied any fever. Cardio vascular: denied any chest pain, palpitations Gastrointestinal denied any nausea vomiting Pulmonary: Denied any shortness of breath cough Neurologic denied any new focal deficits Objective - Vital Signs Vital signs: Vital Signs Temp 98.0 F 01/28/21 08:00 Pulse 94 01/28/21 08:00 Resp 16 01/28/21 08:00 BP 124/71 01/28/21 08:00 Pulse Ox 95 01/28/21 08:00 Intake & Output 01/27/21 01/28/21 01/28/21 18:59 06:59 18:59 Output Total 800 Balance -800 Output: Urine 800 Uretheral (Russ) 400 Other: Voiding Method Indwelling Catheter Toilet # Voids 1 2 - Exam PHYSICAL EXAMINATION: GENERAL: The patient is alert and oriented x3, not in any acute distress. Well developed, well nourished. HEENT: Pupils are round and equally reacting to light. EOMI. No scleral icterus. No conjunctival pallor. Normocephalic, atraumatic. No pharyngeal erythema. No thyromegaly. CARDIOVASCULAR: S1 and S2 present. No murmurs, rubs, or gallops. PULMONARY: Chest is clear to auscultation, no wheezing or crackles. ABDOMEN: Soft, nontender, nondistended, normoactive bowel sounds. No palpable organomegaly. Abdominal binder in place MUSCULOSKELETAL: No joint swelling or deformity. EXTREMITIES: No cyanosis, clubbing, or pedal edema. NEUROLOGICAL: Gross neurological examination did not reveal any focal deficits. SKIN: No rashes. - Labs CBC & Chem 7: 01/28/21 05:38 01/28/21 05:38 Labs: Abnormal Lab Results - Last 24 Hours (Table) 01/28/21 01/28/21 Range/Units 05:38 05:38 WBC 10.18 H (4.50-10.00) X 10*3/uL RBC 4.31 L (4.40-5.60) X 10*6/uL Hgb 12.9 L (13.0-17.0) g/dL Hct 37.5 L (39.6-50.0) % Immature Gran # 0.07 H (0.00-0.04) X 10*3/uL Monocytes # 1.03 H (0.20-1.00) X 10*3/uL Eosinophils # 0.53 H (0.04-0.35) X 10*3/uL Calcium 8.5 L (8.7-10.3) mg/dL Assessment and Plan Assessment: Assessment: 1. Small bowel obstruction related to incisional hernia and adhesions: Day 3 postop following exploratory laparotomy, lysis of adhesions and small bowel resection, repair of incisional hernia. Clear liquid diet 2. Leukocytosis; reactive without any evidence of infection: White count trending down 3. Hypercalcemia; possibly secondary to dehydration; approved with IV fluids 4. Hypertension; we will resume home dose of lisinopril 10 mg daily, holding Norvasc. BP controlled 5. Depression/anxiety; Effexor 75 mg daily
--- NOTE | 2021-01-28 13:58 | P.PN ---
Subjective Progress Note Date: 01/28/21 CHIEF COMPLAINT: Abdominal pain HISTORY OF PRESENT ILLNESS: Patient is postop day #2 status post exploratory laparotomy, lysis of adhesions, small bowel resection and repair of incisional hernia for small bowel obstruction with extensive adhesions and an incisional hernia. Patient reports that his abdominal pain is controlled. He denies a nausea vomiting. He is passing gas. He has been up and ambulating. He is tolerating clear liquid diet. Afebrile. WBC is 10.18 hemoglobin 12.9 PHYSICAL EXAM: VITAL SIGNS: Reviewed. GENERAL: Well-developed in no acute distress. HEENT: No sclera icterus. Extraocular movements grossly intact. Moist buccal mucosa. Head is atraumatic, normocephalic. ABDOMEN: Soft. Nondistended. Incision sites clean dry and intact NEUROLOGIC: Alert and oriented. Cranial nerves II through XII grossly intact. ASSESSMENT: 1. Small bowel obstruction with extensive adhesions and an incisional hernia status post exploratory laparotomy, lysis of adhesions, small bowel resection and repair of incisional hernia PLAN: -Advance diet to full liquids -Continue pain medication as needed -Encourage incentive spirometer use -Encourage patient to ambulate -GI prophylaxis Protonix and DVT prophylaxis Lovenox Physician Asbestos Siding Installer note has been reviewed by physician. Signing provider agrees with the documented findings, assessment, and plan of care. Objective - Vital Signs Vital signs: Vital Signs Temp 98.0 F 01/28/21 08:00 Pulse 94 01/28/21 08:00 Resp 16 01/28/21 08:00 BP 124/71 01/28/21 08:00 Pulse Ox 95 01/28/21 08:00 Intake & Output 01/27/21 01/28/21 01/28/21 18:59 06:59 18:59 Output Total 800 Balance -800 Output: Urine 800 Uretheral (Russ) 400 Other: Voiding Method Indwelling Catheter Toilet # Voids 1 2 - Labs CBC & Chem 7: 01/28/21 05:38 01/28/21 05:38 Labs: Abnormal Lab Results - Last 24 Hours (Table) 01/28/21 01/28/21 Range/Units 05:38 05:38 WBC 10.18 H (4.50-10.00) X 10*3/uL RBC 4.31 L (4.40-5.60) X 10*6/uL Hgb 12.9 L (13.0-17.0) g/dL Hct 37.5 L (39.6-50.0) % Immature Gran # 0.07 H (0.00-0.04) X 10*3/uL Monocytes # 1.03 H (0.20-1.00) X 10*3/uL Eosinophils # 0.53 H (0.04-0.35) X 10*3/uL Calcium 8.5 L (8.7-10.3) mg/dL
[2021-01-28] MEDS: HYDROmorphone 1 MG/ML 1 ML SYRINGE IVP PRN (23:07)
[2021-01-29] MEDS: SODIUM CHLORIDE 0.9% 1,000 ML IV SCH ×2 (02:11→17:00)
[2021-01-29] MEDS: HYDROmorphone 1 MG/ML 1 ML SYRINGE IVP PRN (05:40)
[2021-01-29] MEDS: ENOXAPARIN 40 MG/0.4 ML SYRINGE SQ SCH (08:52)
[2021-01-29] MEDS: VENLAFAXINE HCL ER 75 MG CAP PO SCH ×2 (08:53→20:50)
[2021-01-29] MEDS: DOCUSATE 100 MG CAP PO SCH ×2 (08:53→20:50)
[2021-01-29] MEDS: lisinopriL 10 MG TAB PO SCH (08:53)
[2021-01-29] MEDS: PANTOPRAZOLE 40 MG TABLET PO SCH (08:53)
[2021-01-29 10:23] LABS: Basophils # (A) 0.05 X 10*3/uL (0.00-0.10); Basophils % (A) 0.5 %; Eosinophils # (A) 1.01 X 10*3/uL (0.04-0.35); Eosinophils % (A) 10.4 %; HCT 37.9 % (39.6-50.0); HGB 12.6 g/dL (13.0-17.0); Lymphocytes # (A) 1.83 X 10*3/uL (0.90-5.00); Lymphocytes % (A) 18.8 %; MCH 29.2 pg (27.0-32.0); MCHC 33.2 g/dL (32.0-37.0); MCV 87.9 fL (80.0-97.0); Mean Platelet Volume 11.2 fL (9.5-12.2); Monocytes # (A) 0.97 X 10*3/uL (0.20-1.00); Neutrophils # (A) 5.73 X 10*3/uL (1.80-7.70); Platelet Count 244 X 10*3/uL (140-440); RBC 4.31 X 10*6/uL (4.40-5.60); RDW 12.1 % (11.5-14.5); WBC 9.72 X 10*3/uL (4.50-10.00)
[2021-01-29 11:05] LABS: African American GFR (CKD) 85.9 (60.0-200.0); Albumin 3.7 g/dL (3.80-4.90); Albumin/Globulin Ratio 1.76 (1.60-3.17); Anion Gap 8.2 mmol/L (4.00-12.00); BUN/Creat Ratio 10.91 Ratio (12.00-20.00); Calcium 8.4 mg/dL (8.7-10.3); Carbon Dioxide 26.8 mmol/L (21.6-31.8); Globulin 2.1 g/dL (1.6-3.3); Non-African American GFR(CKD) 74.1 (60.0-200.0); Potassium 4.3 mmol/L (3.5-5.5); Total Bilirubin 0.5 mg/dL (0.2-1.2); Total Protein 5.8 g/dL (6.2-8.2)
--- NOTE | 2021-01-29 14:48 | P.PN ---
Subjective 55-year-old male presents emergency Department with chief complaint of severe upper abdominal, mid abdominal pain. Patient states his started around 8:00 this evening. Patient is a cement the pain. Patient does have a history of bowel resection secondary to diverticulitis. Patient states this was many years ago. Patient with nausea vomiting mild constipation. No known fever states he's had chills, sweating episodes. No chest pain shortness breath headache dizziness. Dies any back or flank pain abdominal pain CT shows evidence of partial small bowel obstruction. Patient does have a history of bowel resection. Patient would be admitted with consult to surgery. Patient is evaluated by surgery and is planned to undergo incisional hernia repair in the morning with adhesiolysis 01/26/2021 Patient is seen and evaluated post exploratory laparotomy; Lysis of adhesions; Small bowel resection; Repair of incisional hernia-- POD #0 Vital signs are reviewed and patient remains afebrile, blood pressure 151/85, p ulse 90 and O2 saturation of 94% on 2 L Labs reveal an improved white blood count of 12.2 from 16.2 yesterday; chemical profile remains stable; blood glucoses ranging between 94-178 01/27/2021 Patient is passing gas does have bowel sounds. Discussed with the just surgery patient will be started on clear liquid diet. 01/28/2021 Patient seen day 2 postop, passing gas no bowel movement yet. Remains on clear liquid diet, no nausea vomiting. Bowel sounds. Hemodynamically stable afebrile. 01/29/2021 Patient can he is to do better postoperative day 3 was started on full liquid diet diet is being advanced did not move his bowel yet and possibility of discharge in a day or 2 Constitutional: Denied any fatigue denied any fever. Cardio vascular: denied any chest pain, palpitations Gastrointestinal denied any nausea vomiting Pulmonary: Denied any shortness of breath cough Neurologic denied any new focal deficits Objective - Vital Signs Vital signs: Vital Signs Temp 97.9 F 01/29/21 08:00 Pulse 86 01/29/21 08:00 Resp 16 01/29/21 08:00 BP 146/80 01/29/21 08:00 Pulse Ox 98 01/29/21 08:00 Intake & Output 01/28/21 01/29/21 01/29/21 18:59 06:59 18:59 Other: Voiding Method Toilet # Voids 3 3 - Exam PHYSICAL EXAMINATION: GENERAL: The patient is alert and oriented x3, not in any acute distress. Well developed, well nourished. HEENT: Pupils are round and equally reacting to light. EOMI. No scleral icterus. No conjunctival pallor. Normocephalic, atraumatic. No pharyngeal erythema. No thyromegaly. CARDIOVASCULAR: S1 and S2 present. No murmurs, rubs, or gallops. PULMONARY: Chest is clear to auscultation, no wheezing or crackles. ABDOMEN: Soft, nontender, nondistended, normoactive bowel sounds. No palpable organomegaly. Abdominal binder in place MUSCULOSKELETAL: No joint swelling or deformity. EXTREMITIES: No cyanosis, clubbing, or pedal edema. NEUROLOGICAL: Gross neurological examination did not reveal any focal deficits. SKIN: No rashes. - Labs CBC & Chem 7: 01/29/21 06:49 01/29/21 06:49 Labs: Abnormal Lab Results - Last 24 Hours (Table) 01/29/21 01/29/21 Range/Units 06:49 06:49 RBC 4.31 L (4.40-5.60) X 10*6/uL Hgb 12.6 L (13.0-17.0) g/dL Hct 37.9 L (39.6-50.0) % Immature Gran # 0.13 H (0.00-0.04) X 10*3/uL Eosinophils # 1.01 H (0.04-0.35) X 10*3/uL BUN/Creatinine Ratio 10.91 L (12.00-20.00) Ratio Calcium 8.4 L (8.7-10.3) mg/dL Total Protein 5.8 L (6.2-8.2) g/dL Albumin 3.70 L (3.80-4.90) g/dL Assessment and Plan Plan: Assessment and Plan Assessment: 1. Small bowel obstruction related to incisional hernia and adhesions patient is passing gas diet will be advanced 2. Leukocytosis; reactive without any evidence of infection 3. Hypercalcemia; possibly secondary to dehydration; approved with IV fluids 4. Hypertension; we will resume home dose of lisinopril 10 mg daily can you to hold amlodipine 5. Depression/anxiety; Effexor 75 mg daily
--- NOTE | 2021-01-29 14:57 | P.PN ---
Subjective Progress Note Date: 01/29/21 CHIEF COMPLAINT: Abdominal pain HISTORY OF PRESENT ILLNESS: Patient is postop day #3 status post exploratory laparotomy, lysis of adhesions, small bowel resection and repair of incisional hernia for small bowel obstruction with extensive adhesions and an incisional hernia. Patient reports that his abdominal pain is controlled. However, he still requests the Dilaudid at night to help him sleep. He reports the [place] 5 do not help. He denies a nausea vomiting. He is passing gas. He has been up and ambulating. He is tolerating full liquid diet. Afebrile. WBC 9.72 hemoglobin 12.6 PHYSICAL EXAM: VITAL SIGNS: Reviewed. GENERAL: Well-developed in no acute distress. HEENT: No sclera icterus. Extraocular movements grossly intact. Moist buccal mucosa. Head is atraumatic, normocephalic. ABDOMEN: Soft. Nondistended. Incision sites clean dry and intact NEUROLOGIC: Alert and oriented. Cranial nerves II through XII grossly intact. ASSESSMENT: 1. Small bowel obstruction with extensive adhesions and an incisional hernia status post exploratory laparotomy, lysis of adhesions, small bowel resection and repair of incisional hernia PLAN: -Continue full liquids -Continue pain medication as needed. We'll discontinue the [place] 5 and a [place] 7.5 one every 6 hours as needed for pain -Encourage incentive spirometer use -Encourage patient to ambulate -GI prophylaxis Protonix and DVT prophylaxis Lovenox Physician Air Drier Machine Operator note has been reviewed by physician. Signing provider agrees with the documented findings, assessment, and plan of care. Objective - Vital Signs Vital signs: Vital Signs Temp 97.9 F 01/29/21 08:00 Pulse 86 01/29/21 08:00 Resp 16 01/29/21 08:00 BP 146/80 01/29/21 08:00 Pulse Ox 98 01/29/21 08:00 Intake & Output 01/28/21 01/29/21 01/29/21 18:59 06:59 18:59 Other: Voiding Method Toilet # Voids 3 3 - Labs CBC & Chem 7: 01/29/21 06:49 01/29/21 06:49 Labs: Abnormal Lab Results - Last 24 Hours (Table) 01/29/21 01/29/21 Range/Units 06:49 06:49 RBC 4.31 L (4.40-5.60) X 10*6/uL Hgb 12.6 L (13.0-17.0) g/dL Hct 37.9 L (39.6-50.0) % Immature Gran # 0.13 H (0.00-0.04) X 10*3/uL Eosinophils # 1.01 H (0.04-0.35) X 10*3/uL BUN/Creatinine Ratio 10.91 L (12.00-20.00) Ratio Calcium 8.4 L (8.7-10.3) mg/dL Total Protein 5.8 L (6.2-8.2) g/dL Albumin 3.70 L (3.80-4.90) g/dL
[2021-01-29] MEDS: HYDROcodone/APAP 7.5-325MG 1 EACH TAB PO PRN (16:59)
[2021-01-30] MEDS: HYDROcodone/APAP 7.5-325MG 1 EACH TAB PO PRN (00:21)
[2021-01-30] MEDS: SODIUM CHLORIDE 0.9% 1,000 ML IV SCH ×2 (02:16→17:03)
[2021-01-30] MEDS: VENLAFAXINE HCL ER 75 MG CAP PO SCH ×2 (08:05→20:53)
[2021-01-30] MEDS: lisinopriL 10 MG TAB PO SCH (08:05)
[2021-01-30] MEDS: PANTOPRAZOLE 40 MG TABLET PO SCH (08:05)
[2021-01-30] MEDS: DOCUSATE 100 MG CAP PO SCH ×2 (08:05→20:53)
[2021-01-30] MEDS: ENOXAPARIN 40 MG/0.4 ML SYRINGE SQ SCH (08:05)
[2021-01-30 11:16] LABS: Basophils # (A) 0.1 k/uL (0-0.2); Basophils % (A) 1 %; Eosinophils # (A) 0.8 k/uL (0-0.7); Eosinophils % (A) 9 %; HCT 42.2 % (39.0-53.0); Lymphocytes # (A) 1.6 k/uL (1.0-4.8); Lymphocytes % (A) 17 %; MCH 28.5 pg (25.0-35.0); MCHC 33.2 g/dL (31.0-37.0); Mean Platelet Volume 8.6; Monocytes # (A) 0.7 k/uL (0-1.0); Monocytes % (A) 7 %; Neutrophils # (A) 6.2 k/uL (1.3-7.7); Neutrophils % (A) 66 %; Platelet Count 310 k/uL (150-450); RBC 4.91 m/uL (4.30-5.90); RDW 12.8 % (11.5-15.5); WBC 9.4 k/uL (3.8-10.6)
[2021-01-30 11:20] LABS: ALT 45 U/L (4-49); AST 41 U/L (17-59); African American GFR (CKD) >90 (>60 ml/min/1.73 sqM); Albumin 3.5 g/dL (3.5-5.0); Albumin/Globulin Ratio 1.3; Alkaline Phosphatase 90 U/L (38-126); Anion Gap 9 mmol/L; Blood Urea Nitrogen 10 mg/dL (9-20); Calcium 8.9 mg/dL (8.4-10.2); Carbon Dioxide 25 mmol/L (22-30); Chloride 102 mmol/L (98-107); Globulin 2.8 g/dL; Glucose 134 mg/dL (74-99); Non-African American GFR(CKD) 86 (>60 ml/min/1.73 sqM); Potassium 3.7 mmol/L (3.5-5.1); Sodium 136 mmol/L (137-145); Total Bilirubin 0.5 mg/dL (0.2-1.3); Total Protein 6.3 g/dL (6.3-8.2)
--- NOTE | 2021-01-30 12:46 | P.PN ---
Subjective 55-year-old male presents emergency Department with chief complaint of severe upper abdominal, mid abdominal pain. Patient states his started around 8:00 this evening. Patient is a cement the pain. Patient does have a history of bowel resection secondary to diverticulitis. Patient states this was many years ago. Patient with nausea vomiting mild constipation. No known fever states he's had chills, sweating episodes. No chest pain shortness breath headache dizziness. Dies any back or flank pain abdominal pain CT shows evidence of partial small bowel obstruction. Patient does have a history of bowel resection. Patient would be admitted with consult to surgery. Patient is evaluated by surgery and is planned to undergo incisional hernia repair in the morning with adhesiolysis 01/26/2021 Patient is seen and evaluated post exploratory laparotomy; Lysis of adhesions; Small bowel resection; Repair of incisional hernia-- POD #0 Vital signs are reviewed and patient remains afebrile, blood pressure 151/85, p ulse 90 and O2 saturation of 94% on 2 L Labs reveal an improved white blood count of 12.2 from 16.2 yesterday; chemical profile remains stable; blood glucoses ranging between 94-178 01/27/2021 Patient is passing gas does have bowel sounds. Discussed with the just surgery patient will be started on clear liquid diet. 01/28/2021 Patient seen day 2 postop, passing gas no bowel movement yet. Remains on clear liquid diet, no nausea vomiting. Bowel sounds. Hemodynamically stable afebrile. 01/29/2021 Patient can he is to do better postoperative day 3 was started on full liquid diet diet is being advanced did not move his bowel yet and possibility of discharge in a day or 2 01/30/2021 Ration is clinically doing well in the feet has a bowel movement today possibly will be discharged later today. Constitutional: Denied any fatigue denied any fever. Cardio vascular: denied any chest pain, palpitations Gastrointestinal denied any nausea vomiting Pulmonary: Denied any shortness of breath cough Neurologic denied any new focal deficits Objective - Vital Signs Vital signs: Vital Signs Temp 98.8 F 01/30/21 07:18 Pulse 87 01/30/21 07:18 Resp 18 01/30/21 07:18 BP 154/72 01/30/21 07:18 Pulse Ox 96 01/30/21 07:18 Intake & Output 01/29/21 01/30/21 01/30/21 18:59 06:59 18:59 Other: # Voids 3 - Exam PHYSICAL EXAMINATION: GENERAL: The patient is alert and oriented x3, not in any acute distress. Well developed, well nourished. HEENT: Pupils are round and equally reacting to light. EOMI. No scleral icterus. No conjunctival pallor. Normocephalic, atraumatic. No pharyngeal erythema. No thyromegaly. CARDIOVASCULAR: S1 and S2 present. No murmurs, rubs, or gallops. PULMONARY: Chest is clear to auscultation, no wheezing or crackles. ABDOMEN: Soft, nontender, nondistended, normoactive bowel sounds. No palpable organomegaly. Abdominal binder in place MUSCULOSKELETAL: No joint swelling or deformity. EXTREMITIES: No cyanosis, clubbing, or pedal edema. NEUROLOGICAL: Gross neurological examination did not reveal any focal deficits. SKIN: No rashes. - Labs CBC & Chem 7: 01/30/21 08:59 01/30/21 08:59 Labs: Abnormal Lab Results - Last 24 Hours (Table) 01/30/21 01/30/21 Range/Units 08:59 08:59 Eosinophils # 0.8 H (0-0.7) k/uL Sodium 136 L (137-145) mmol/L Glucose 134 H (74-99) mg/dL Assessment and Plan Plan: Assessment and Plan Assessment: 1. Small bowel obstruction related to incisional hernia and adhesions patient is passing gas. It is still on the clear liquids. Passing gas does have good bowel sounds probably will be discharged today. 2. Leukocytosis; reactive without any evidence of infection, 3. Hypercalcemia; possibly secondary to dehydration; improved with IV fluids 4. Hypertension; we will resume home dose of lisinopril 10 mg daily can hold amlodipine 5. Depression/anxiety; Effexor 75 mg daily
--- NOTE | 2021-01-30 12:57 | P.PN ---
Subjective Progress Note Date: 01/30/21 CHIEF COMPLAINT: Abdominal pain HISTORY OF PRESENT ILLNESS: Patient is postop day #4 status post exploratory laparotomy, lysis of adhesions, small bowel resection and repair of incisional hernia for small bowel obstruction with extensive adhesions and an incisional hernia. Patient reports that his abdominal pain is controlled. Patient reports doing better with the [place] 7.5 last night. He denies a nausea vomiting. He is passing gas. No bowel movement yet. He has been up and ambulating. He is tolerating full liquid diet. Afebrile. WBC 9.4 hemoglobin 14 PHYSICAL EXAM: VITAL SIGNS: Reviewed. GENERAL: Well-developed in no acute distress. HEENT: No sclera icterus. Extraocular movements grossly intact. Moist buccal mucosa. Head is atraumatic, normocephalic. ABDOMEN: Soft. Nondistended. Incision sites clean dry and intact NEUROLOGIC: Alert and oriented. Cranial nerves II through XII grossly intact. ASSESSMENT: 1. Small bowel obstruction with extensive adhesions and an incisional hernia status post exploratory laparotomy, lysis of adhesions, small bowel resection and repair of incisional hernia PLAN: -Continue full liquids -Continue pain medication as needed -Encourage incentive spirometer use -Encourage patient to ambulate -GI prophylaxis Protonix and DVT prophylaxis Lovenox Physician Airline Counter Agent note has been reviewed by physician. Signing provider agrees with the documented findings, assessment, and plan of care. Objective - Vital Signs Vital signs: Vital Signs Temp 98.8 F 01/30/21 07:18 Pulse 87 01/30/21 07:18 Resp 18 01/30/21 07:18 BP 154/72 01/30/21 07:18 Pulse Ox 96 01/30/21 07:18 Intake & Output 01/29/21 01/30/21 01/30/21 18:59 06:59 18:59 Other: # Voids 3 - Labs CBC & Chem 7: 01/30/21 08:59 01/30/21 08:59 Labs: Abnormal Lab Results - Last 24 Hours (Table) 01/30/21 01/30/21 Range/Units 08:59 08:59 Eosinophils # 0.8 H (0-0.7) k/uL Sodium 136 L (137-145) mmol/L Glucose 134 H (74-99) mg/dL
[2021-01-30] MEDS ORDERED: MELATONIN 5 MG TABLET PO SCH (23:45)
[2021-01-31 07:25] VITALS: BP 125/75; PULSE 87; RESP 18; TEMP 98.3
[2021-01-31] MEDS: ENOXAPARIN 40 MG/0.4 ML SYRINGE SQ SCH (07:45)
[2021-01-31] MEDS: DOCUSATE 100 MG CAP PO SCH (07:45)
[2021-01-31] MEDS: PANTOPRAZOLE 40 MG TABLET PO SCH (07:45)
[2021-01-31] MEDS: VENLAFAXINE HCL ER 75 MG CAP PO SCH (07:45)
[2021-01-31] MEDS: lisinopriL 10 MG TAB PO SCH (07:45)
--- NOTE | 2021-01-31 09:18 | P.DS ---
Providers Date of admission: 01/25/21 04:03 Attending physician: Mikey Hull Consults: 01/25/21 02:38 Consult Physician Urgent Consulting Provider: Wayne Winslow Consult Reason/Comments: SBO Do you want consulting provider notified?: Yes Primary care physician: Stated None Hospital Course: 55-year-old male presents emergency Department with chief complaint of severe upper abdominal, mid abdominal pain. Patient states his started around 8:00 this evening. Patient is a cement the pain. Patient does have a history of bowel resection secondary to diverticulitis. Patient states this was many years ago. Patient with nausea vomiting mild constipation. No known fever states he's had chills, sweating episodes. No chest pain shortness breath headache dizziness. Dies any back or flank pain abdominal pain CT shows evidence of partial small bowel obstruction. Patient does have a history of bowel resection. Patient would be admitted with consult to surgery. Patient is evaluated by surgery and is planned to undergo incisional hernia repair in the morning with adhesiolysis 01/26/2021 Patient is seen and evaluated post exploratory laparotomy; Lysis of adhesions; S mall bowel resection; Repair of incisional hernia-- POD #0 Vital signs are reviewed and patient remains afebrile, blood pressure 151/85, pulse 90 and O2 saturation of 94% on 2 L Labs reveal an improved white blood count of 12.2 from 16.2 yesterday; chemical profile remains stable; blood glucoses ranging between 94-178 01/27/2021 Patient is passing gas does have bowel sounds. Discussed with the just surgery patient will be started on clear liquid diet. 01/28/2021 Patient seen day 2 postop, passing gas no bowel movement yet. Remains on clear liquid diet, no nausea vomiting. Bowel sounds. Hemodynamically stable afebrile. 01/29/2021 Patient can he is to do better postoperative day 3 was started on full liquid diet diet is being advanced did not move his bowel yet and possibility of disc harge in a day or 2 01/30/2021 Ration is clinically doing well in the feet has a bowel movement today possibly will be discharged later today. 01/31/2021 Patient had a bowel movement today clinically doing well will be discharged today. PHYSICAL EXAMINATION: GENERAL: The patient is alert and oriented x3, not in any acute distress. Well developed, well nourished. HEENT: Pupils are round and equally reacting to light. EOMI. No scleral icterus. No conjunctival pallor. Normocephalic, atraumatic. No pharyngeal erythema. No thyromegaly. CARDIOVASCULAR: S1 and S2 present. No murmurs, rubs, or gallops. PULMONARY: Chest is clear to auscultation, no wheezing or crackles. ABDOMEN: Soft, nontender, nondistended, normoactive bowel sounds. No palpable organomegaly. The site area looks clear to MUSCULOSKELETAL: No joint swelling or deformity. EXTREMITIES: No cyanosis, clubbing, or pedal edema. NEUROLOGICAL: Gross neurological examination did not reveal any focal deficits. SKIN: No rashes. Assessment and Plan Assessment: 1. Small bowel obstruction related to incisional hernia and adhesions patient had a bowel movement clinically doing well will be discharged today. 2. Leukocytosis; reactive without any evidence of infection, 3. Hypercalcemia; possibly secondary to dehydration; improved with IV fluids 4. Hypertension; we will resume home dose of lisinopril 10 mg daily can hold amlodipine 5. Depression/anxiety; Effexor 75 mg daily Patient Condition at Discharge: Fair Plan - Discharge Summary Discharge Rx Participant: Yes New Discharge Prescriptions: Continue Venlafaxine HCl [Effexor XR] 75 mg PO BID Lisinopril [Prinivil] 10 mg PO DAILY Melatonin 3 mg PO HS PRN PRN Reason: Insomnia Omeprazole 20 mg PO DAILY Multivitamins, Thera [Multivitamin (formulary)] 1 tab PO DAILY Magnesium Hydroxide [Milk of Magnesia] 400 mg PO DAILY PRN PRN Reason: Constipation Doxylamine Succinate [Unisom] 25 mg PO HS PRN PRN Reason: Insomnia Discontinued amLODIPine [Norvasc] 2.5 mg PO DAILY Aspirin EC [Ecotrin] 325 mg PO DAILY PRN PRN Reason: Pain Discharge Medication List Doxylamine Succinate [Unisom] 25 mg PO HS PRN 01/25/21 [History] Lisinopril [Prinivil] 10 mg PO DAILY 01/25/21 [History] Magnesium Hydroxide [Milk of Magnesia] 400 mg PO DAILY PRN 01/25/21 [History] Melatonin 3 mg PO HS PRN 01/25/21 [History] Multivitamins, Thera [Multivitamin (formulary)] 1 tab PO DAILY 01/25/21 [History] Omeprazole 20 mg PO DAILY 01/25/21 [History] Venlafaxine HCl [Effexor XR] 75 mg PO BID 01/25/21 [History] Follow up Appointment(s)/Referral(s): Perez Gilbert MD [REFERRING] - 1 Week (Please contact office to schedule a new appointment ) Activity/Diet/Wound Care/Special Instructions: Please go to [email or web address] to find local primary care physician. Discharge Disposition: HOME SELF-CARE
--- NOTE | 2021-01-31 10:58 | P.PN ---
Subjective Progress Note Date: 01/31/21 CHIEF COMPLAINT: Abdominal pain HISTORY OF PRESENT ILLNESS: Patient is postop day #5 status post exploratory laparotomy, lysis of adhesions, small bowel resection and repair of incisional hernia for small bowel obstruction with extensive adhesions and an incisional hernia. Patient reports that his abdominal pain is controlled. He denies a nausea vomiting. He is passing gas and having bowel movements. He has been up and ambulating. He is tolerating full liquid diet. Afebrile. WBC 9.4 PHYSICAL EXAM: VITAL SIGNS: Reviewed. GENERAL: Well-developed in no acute distress. HEENT: No sclera icterus. Extraocular movements grossly intact. Moist buccal mucosa. Head is atraumatic, normocephalic. ABDOMEN: Soft. Nondistended. Incision sites clean dry and intact NEUROLOGIC: Alert and oriented. Cranial nerves II through XII grossly intact. ASSESSMENT: 1. Small bowel obstruction with extensive adhesions and an incisional hernia status post exploratory laparotomy, lysis of adhesions, small bowel resection and repair of incisional hernia PLAN: -Advance diet as tolerated -Patient is stable from surgical standpoint for discharge and to follow up with Dr. Winslow and 1 week -Continue pain medication as needed -Encourage incentive spirometer use -Encourage patient to ambulate -GI prophylaxis Protonix and DVT prophylaxis Lovenox Physician Medical Records Receptionist note has been reviewed by physician. Signing provider agrees with the documented findings, assessment, and plan of care. Objective - Vital Signs Vital signs: Vital Signs Temp 98.3 F 01/31/21 07:24 Pulse 87 01/31/21 07:24 Resp 18 01/31/21 07:24 BP 125/75 01/31/21 07:24 Pulse Ox 96 01/31/21 07:24 Intake & Output 01/30/21 01/31/21 01/31/21 18:59 06:59 18:59 Intake Total 720 1540 Balance 720 1540 Intake: Intake, IV Titration 1000 Amount Sodium Chloride 0.9% 1, 900 000 ml @ 75 mls/hr IV . [id number] [facility] Rx#:[id number] Sodium Chloride 0.9% 100 100 ml @ 0 mls/hr IV .STK-MED ONE with ceFAZolin 2,000 mg Rx#:[id number] Oral 720 540 Other: Voiding Method Toilet # Bowel Movements 1 - Labs CBC & Chem 7: 01/30/21 08:59 01/30/21 08:59 Labs: Abnormal Lab Results - Last 24 Hours (Table) 01/30/21 01/30/21 Range/Units 08:59 08:59 Eosinophils # 0.8 H (0-0.7) k/uL Sodium 136 L (137-145) mmol/L Glucose 134 H (74-99) mg/dL
== END 2021-01-31 12:25 | disposition home or self-care (01) | DRG 330 ==
LOC: EC 00:17 → OBSVTOIN 04:03 → 4SSUR 04:03
PROVIDERS: ADMIT Hospitalist; ATTEND Hospitalist
PROC: 0DN80ZZ Release Small Intestine, Open Approach (ICD-10-PCS; 2021-01-26)
PROC: 0WQF0ZZ Repair Abdominal Wall, Open Approach (ICD-10-PCS; 2021-01-26)
PROC: 0DB80ZZ Excision of Small Intestine, Open Approach (ICD-10-PCS; principal; 2021-01-26 10:00)
DX: K43.0 Incisional hernia with obstruction, without gangrene (principal); K56.51 Intestinal adhesions [bands], with partial obstruction; Z90.49 Acquired absence of other specified parts of digestive tract; I10 Essential (primary) hypertension; Z87.891 Personal history of nicotine dependence; F32.9 Major depressive disorder, single episode, unspecified; E83.52 Hypercalcemia; E86.0 Dehydration; D72.829 Elevated white blood cell count, unspecified; F41.9 Anxiety disorder, unspecified; Z20.828 Contact with and (suspected) exposure to other viral communicable diseases; Z79.82 Long term (current) use of aspirin
CPT/HCPCS: 36415; 74177; 80048; 80053; 81003; 82150; 83605; 83690; 85025; 85610; 85730; 87635; 88307; 96361; 96374; 96375; 99285